=== PATIENT | female | born 1975 | race Caucasian/White ===

== ENCOUNTER 2023-07-20 07:55 | Emergency (ER) | payer OTHER ==
[~2023-07-20] VITALS: Ht 167.6 cm; Wt 104.3 kg
[2023-07-20] MEDS ORDERED: Cymbalta20 MG PO (09:19)
[2023-07-20] MEDS ORDERED: Robaxin750 MG PO (11:19)
[2023-07-20] MEDS ORDERED: CYCL10 PO (11:19)
[2023-07-20] MEDS ORDERED: Voltaren100 GM TOP (11:19)
[2023-07-20] MEDS ORDERED: LIDO700A20 TOP (11:19)
[2023-07-20] MEDS ORDERED: Percocet 5-3251 EACH PO (11:20)
[2023-07-20 11:31] VITALS: BP 124/74
== END 2023-07-20 11:30 | disposition home or self-care (01) ==
LOC: ER 07:55
DX: M54.50 Low back pain, unspecified (principal); G89.29 Other chronic pain; Z79.899 Other long term (current) drug therapy; Z88.6 Allergy status to analgesic agent
CPT/HCPCS: 99283; A9270